=== PATIENT | female | born 1990 | race Caucasian/White ===

== ENCOUNTER 2019-11-14 16:59 | Emergency (ER) | payer SELFPAY ==
--- NOTE | 2019-11-14 17:48 | EDM.PDOC ---
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 Patient had a sono-histogram performed by Dr. Oral Moffett and states that she has had some cramping and bleeding following the procedure and was not sure if this is normal are not. Patient states the cramping is improved from when she had the procedure. Patient states that she has some light bleeding and is using 1-2 tampons a day over the weekend and states the bleeding is less than her usual cycle. Patient denies any other symptoms or concerns. Patient denies fever, chills, chest pain, shortness of breath, or cough. Denies headache, neck stiff ness, change in vision, syncope, or near syncope. Denies nausea, vomiting, diarrhea, constipation, or dysuria. Has not noted any blood in urine or stool. Patient has been eating and drinking appropriately. Review of systems: As per history of present illness and below otherwise all systems reviewed and negative. Past medical history: As per history of present illness and as reviewed below otherwise noncontributory. Surgical history: As per history of present illness and as reviewed below otherwise noncontributory. Social history: See social history for further information Family history: As per history of present illness and as reviewed below otherwise noncontributory. Physical exam: General: Patient is alert, oriented, and in no acute distress. Patient sitting comfortably on exam table. HEENT: Atraumatic, normocephalic, pupils equal and reactive bilaterally, negative for conjunctival pallor or scleral icterus, mucous membranes moist, TMs normal bilaterally, throat clear, neck supple, nontender, trachea midline. No drooling or trismus noted. No meningeal signs. No hot potato voice noted. Lungs: Clear to auscultation, breath sounds equal bilaterally, chest nontender. Heart: S1S2, regular rate and rhythm without overt murmur Abdomen: Soft, nondistended, nontender. Negative for masses or hepatosplenomegaly. Negative for costovertebral tenderness. Pelvis: Stable nontender. Genitourinary: Strategic Buyer at bedside KR. There is a small amount of bright red blood in the vaginal vault. There is a small amount of blood in the cervical os. Negative cervical motion tenderness. Rectal: Deferred. Skin: Intact, warm, dry. No lesions or rashes noted. Extremities: Atraumatic, negative for cords or calf pain. Neurovascular unremarkable. Neuro: Awake, alert, oriented. Cranial nerves II through XII unremarkable. Cerebellum unremarkable. Motor and sensory unremarkable throughout. Exam nonfocal. Notes: Dr. Clark, OBGYN drywall application supervisor for [facility], consulted on patient and thoroughly discussed patients case. She states that it is normal to have some bleeding after the procedure as well as cramping and to have patient follow up in the clinic and call to set up an appointment time tomorrow. Voices understanding and is agreeable to plan of care. Denies any further questions or concerns at this time. Diagnostics: CBC, CMP, UA, Uhcg Therapeutics: None Prescription: None Impression: Abnormal vaginal bleeding Plan: 1. You can alternate ibuprofen and Tylenol as directed for pain and discomfort. 2. Follow-up with [facility] women's health provider as discussed. Return to the ED as needed and as discussed. Definitive disposition and diagnosis as appropriate pending reevaluation and review of above. - Related Data Allergies Allergy/AdvReac Type Severity Reaction Status Date / Time No Known Allergies Allergy Verified 11/14/19 17:21 Home Meds: Home Meds . 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: fibroids surgery 11/12/19 Musculoskeletal History: Reports: None Neurological History: Reports: None Psychiatric History: Reports: None Endocrine/Metabolic History: Reports: None Hematologic History: Reports: None Immunologic History: Reports: None Dermatologic History: Reports: None - Infectious Disease History Infectious Disease History: Reports: None - Past Surgical History Head Surgeries/Procedures: Reports: None Social & Family History - Tobacco Use Smoking Status *Q: Never Smoker Second Hand Smoke Exposure: No - Caffeine Use Caffeine Use: Reports: None - Recreational Drug Use Drug Use in Last 12 Months: Yes Recreational Drug Type: Reports: Marijuana/Hashish Recreational Drug Use Frequency: Weekly ED ROS GENERAL - Review of Systems Review Of Systems: Comprehensive ROS is negative, except as noted in HPI. ED EXAM, GENERAL - Physical Exam Exam: See Below (see dictation) Course - Vital Signs Last Recorded V/S: Last Vital Signs Temp 97.4 F 11/14/19 17:17 Pulse 99 11/14/19 17:17 Resp 18 11/14/19 17:17 BP 144/65 H 11/14/19 17:17 Pulse Ox 98 11/14/19 17:17 - Orders/Labs/Meds Labs: Laboratory Tests 11/14/19 11/14/19 11/14/19 Range/Units 17:55 17:55 18:00 WBC 10.36 (4.0-11.0) K/uL RBC 4.85 (4.30-5.90) M/uL Hgb 13.5 (12.0-16.0) g/dL Hct 40.3 (36.0-46.0) % MCV 83.1 (80.0-98.0) fL MCH 27.8 (27.0-32.0) pg MCHC 33.5 (31.0-37.0) g/dL RDW Std Deviation 40.1 (28.0-62.0) fl RDW Coeff of Adelina 13 (11.0-15.0) % Plt Count 317 (150-400) K/uL MPV 11.70 (7.40-12.00) fL Neut % (Auto) 76.4 (48.0-80.0) % Lymph % (Auto) 15.9 L (16.0-40.0) % [place] % (Auto) 5.4 (0.0-15.0) % Eos % (Auto) 1.8 (0.0-7.0) % Baso % (Auto) 0.5 (0.0-1.5) % Neut # (Auto) 7.9 H (1.4-5.7) K/uL Lymph # (Auto) 1.7 (0.6-2.4) K/uL [place] # (Auto) 0.6 (0.0-0.8) K/uL Eos # (Auto) 0.2 (0.0-0.7) K/uL Baso # (Auto) 0.1 (0.0-0.1) K/uL Nucleated RBC % 0.0 /100WBC Nucleated RBCs # 0 K/uL Sodium 142 (136-145) mmol/L Potassium 4.0 (3.5-5.1) mmol/L Chloride 106 (98-107) mmol/L Carbon Dioxide 25.9 (21.0-32.0) mmol/L BUN 13 (7.0-18.0) mg/dL Creatinine 0.9 (0.6-1.0) mg/dL Est Cr Clr Drug Dosing 81.08 mL/min Estimated GFR (MDRD) > 60.0 ml/min Glucose 84 (74-106) mg/dL Calcium 8.6 (8.5-10.1) mg/dL Total Bilirubin 0.2 (0.2-1.0) mg/dL AST 18 (15-37) IU/L ALT 26 (14-63) IU/L Alkaline Phosphatase 84 (46-116) U/L Total Protein 7.6 (6.4-8.2) g/dL Albumin 3.6 (3.4-5.0) g/dL Globulin 4.0 (2.6-4.0) g/dL Albumin/Globulin Ratio 0.9 (0.9-1.6) Urine Color YELLOW Urine Appearance CLEAR Urine pH 6.5 (5.0-8.0) Ur Specific Laie >= 1.030 (1.001-1.035) Urine Protein NEGATIVE (NEGATIVE) mg/dL Urine Glucose (UA) NEGATIVE (NEGATIVE) mg/dL Urine Ketones NEGATIVE (NEGATIVE) mg/dL Urine Occult Blood NEGATIVE (NEGATIVE) Urine Nitrite NEGATIVE (NEGATIVE) Urine Bilirubin NEGATIVE (NEGATIVE) Urine Urobilinogen 0.2 (<2.0) EU/dL Ur Leukocyte Esterase NEGATIVE (NEGATIVE) Urine HCG, Qual (NEGATIVE) 11/14/19 Range/Units 18:00 WBC (4.0-11.0) K/uL RBC (4.30-5.90) M/uL Hgb (12.0-16.0) g/dL Hct (36.0-46.0) % MCV (80.0-98.0) fL MCH (27.0-32.0) pg MCHC (31.0-37.0) g/dL RDW Std Deviation (28.0-62.0) fl RDW Coeff of Adelina (11.0-15.0) % Plt Count (150-400) K/uL MPV (7.40-12.00) fL Neut % (Auto) (48.0-80.0) % Lymph % (Auto) (16.0-40.0) % [place] % (Auto) (0.0-15.0) % Eos % (Auto) (0.0-7.0) % Baso % (Auto) (0.0-1.5) % Neut # (Auto) (1.4-5.7) K/uL Lymph # (Auto) (0.6-2.4) K/uL [place] # (Auto) (0.0-0.8) K/uL Eos # (Auto) (0.0-0.7) K/uL Baso # (Auto) (0.0-0.1) K/uL Nucleated RBC % /100WBC Nucleated RBCs # K/uL Sodium (136-145) mmol/L Potassium (3.5-5.1) mmol/L Chloride (98-107) mmol/L Carbon Dioxide (21.0-32.0) mmol/L BUN (7.0-18.0) mg/dL Creatinine (0.6-1.0) mg/dL Est Cr Clr Drug Dosing mL/min Estimated GFR (MDRD) ml/min Glucose (74-106) mg/dL Calcium (8.5-10.1) mg/dL Total Bilirubin (0.2-1.0) mg/dL AST (15-37) IU/L ALT (14-63) IU/L Alkaline Phosphatase (46-116) U/L Total Protein (6.4-8.2) g/dL Albumin (3.4-5.0) g/dL Globulin (2.6-4.0) g/dL Albumin/Globulin Ratio (0.9-1.6) Urine Color Urine Appearance Urine pH (5.0-8.0) Ur Specific Laie (1.001-1.035) Urine Protein (NEGATIVE) mg/dL Urine Glucose (UA) (NEGATIVE) mg/dL Urine Ketones (NEGATIVE) mg/dL Urine Occult Blood (NEGATIVE) Urine Nitrite (NEGATIVE) Urine Bilirubin (NEGATIVE) Urine Urobilinogen (<2.0) EU/dL Ur Leukocyte Esterase (NEGATIVE) Urine HCG, Qual NEGATIVE (NEGATIVE) Departure - Departure Time of Disposition: 18:48 Disposition: Home, Self-Care 01 Clinical Impression: Abnormal vaginal bleeding - Discharge Information Referrals: PCP,Unknown [Primary Care Provider] - Forms: ED Department Discharge Additional Instructions: The following information is given to patients seen in the emergency department who are being discharged to home. This information is to outline your options for follow-up care. We provide all patients seen in our emergency department with a follow-up referral. The need for follow-up, as well as the timing and circumstances, are variable depending upon the specifics of your emergency department visit. If you don't have a primary care physician on staff, we will provide you with a referral. We always advise you to contact your personal physician following an emergency department visit to inform them of the circumstance of the visit and for follow-up with them and/or the need for any referrals to a consulting specialist. The emergency department will also refer you to a specialist when appropriate. This referral assures that you have the opportunity for follow-up care with a specialist. All of these measure are taken in an effort to provide you with optimal care, which includes your follow-up. Under all circumstances we always encourage you to contact your private physician who remains a resource for coordinating your care. When calling for follow-up care, please make the office aware that this follow-up is from your recent emergency room visit. If for any reason you are refused follow-up, please contact the [facility] Emergency Department at and asked to speak to the emergency department charge nurse. [facility] [address] [place] [address] [facility] [address] [place] [address] [facility] [address] [place] [id number] 1. You can alternate ibuprofen and Tylenol as directed for pain and discomfort. 2. Follow-up with [facility] provider as discussed. Return to the ED as needed and as discussed. Sepsis Event Note - Evaluation Sepsis Screening Result: No Definite Risk - Focused Exam Vital Signs: Vital Signs Temp Pulse Resp BP Pulse Ox 11/14/19 17:17 97.4 F 99 18 144/65 H 98 Date Exam was Performed: 11/14/19 Time Exam was Performed: 18:47
[2019-11-14 18:32] LABS: BLOOD UREA NITROGEN,BUN 13 mg/dL (7.0-18.0); CARBON DIOXIDE,CO2 25.9 mmol/L (21.0-32.0); CHLORIDE,CL 106 mmol/L (98-107); GLUCOSE RANDOM 84 mg/dL (74-106); SODIUM,NA 142 mmol/L (136-145)
== END 2019-11-14 18:59 | disposition home or self-care (01) ==
LOC: MW.ED 16:59
DX: N93.9 Abnormal uterine and vaginal bleeding, unspecified (principal)
CPT/HCPCS: 36415; 80053; 81003; 81025; 85025; 99284

== ENCOUNTER 2020-08-01 14:57 | Emergency (ER) | payer BC ==
[2020-08-01] MEDS ORDERED: Octyl 2-Cyanoacrylate 1 APPLIC TUBE TOP ONE (15:13)
--- NOTE | 2020-08-01 15:51 | EDM.PDOC ---
ED HPI GENERAL MEDICAL PROBLEM - General Chief Complaint: Laceration Stated Complaint: LACERATION ABOVE LEFT EYE Time Seen by Provider: 08/01/20 15:00 Source of Information: Reports: Patient History Limitations: Reports: No Limitations - History of Present Illness INITIAL COMMENTS - FREE TEXT/NARRATIVE: Presents reporting that she walked into a shelf lacerating her left eyebrow. No other injury and no LOC. left eyebrow Pain Score (Numeric/FACES): 5 - Related Data Allergies Allergy/AdvReac Type Severity Reaction Status Date / Time No Known Allergies Allergy Verified 08/01/20 15:05 Home Meds: Home Meds . 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: fibroids surgery 11/12/19 Musculoskeletal History: Reports: None Neurological History: Reports: None Psychiatric History: Reports: None Endocrine/Metabolic History: Reports: None Hematologic History: Reports: None Immunologic History: Reports: None Dermatologic History: Reports: None - Infectious Disease History Infectious Disease History: Reports: Chicken Pox - Past Surgical History Head Surgeries/Procedures: Reports: None Social & Family History - Family History Family Medical History: Noncontributory - Tobacco Use Smoking Status *Q: Never Smoker - Caffeine Use Caffeine Use: Reports: Coffee, Energy Drinks, Soda, Tea - Recreational Drug Use Recreational Drug Use: Yes Recreational Drug Type: Reports: Marijuana/Hashish Recreational Drug Use Frequency: Daily ED ROS GENERAL - Review of Systems Review Of Systems: Comprehensive ROS is negative, except as noted in HPI. ED EXAM, SKIN/RASH Exam: See Below Exam Limited By: No Limitations General Appearance: Alert, No Apparent Distress Ears: Normal External Exam Nose: Normal Inspection Throat/Mouth: Normal Inspection Head: Normocephalic, Other (1.5 cm laceration left eyebrow superficial no bleeding) Neck: Normal Inspection Respiratory/Chest: No Respiratory Distress, Lungs Clear, Normal Breath Sounds Cardiovascular: Normal Peripheral Pulses, Regular Rate, Rhythm, No Edema Neurological: Alert, Oriented Psychiatric: Normal Affect, Normal Mood ED SKIN PROCEDURES - Laceration/Wound Repair Left Brow Appearance: Superficial Closed with: Dermabond Lac/Wound length In cm: 1.5 Course - Vital Signs Last Recorded V/S: Last Vital Signs Temp 35.8 C L 08/01/20 15:05 Pulse 81 08/01/20 15:05 Resp 17 08/01/20 15:05 BP 145/75 H 08/01/20 15:05 Pulse Ox 95 08/01/20 15:05 - Orders/Labs/Meds Meds: Medications Discontinued Medications Generic Name Dose Route Start Last Admin Trade Name Sorin PRN Reason Stop Dose Admin Octyl Cyanoacrylate 1 applic 08/01/20 15:13 08/01/20 15:20 Dermabond Mini TOP 08/01/20 15:14 1 applic ONETIME ONE Administration Departure - Departure Time of Disposition: 15:48 Disposition: Home, Self-Care 01 Condition: Good Clinical Impression: Laceration - Discharge Information Referrals: PCP,None [Primary Care Provider] - Additional Instructions: The following information is given to patients seen in the emergency department who are being discharged to home. This information is to outline your options for follow-up care. We provide all patients seen in our emergency department with a follow-up referral. The need for follow-up, as well as the timing and circumstances, are variable depending upon the specifics of your emergency department visit. If you don't have a primary care physician on staff, we will provide you with a referral. We always advise you to contact your personal physician following an emergency department visit to inform them of the circumstance of the visit and for follow-up with them and/or the need for any referrals to a consulting specialist. The emergency department will also refer you to a specialist when appropriate. This referral assures that you have the opportunity for follow-up care with a specialist. All of these measure are taken in an effort to provide you with optimal care, which includes your follow-up. Under all circumstances we always encourage you to contact your private physician who remains a resource for coordinating your care. When calling for follow-up care, please make the office aware that this follow-up is from your recent emergency room visit. If for any reason you are refused follow-up, please contact the [facility] Emergency Department at and asked to speak to the emergency department charge nurse. 1. Watch for signs of infection: Redness, swelling, purulent drainage report promptly 2. Dermabond will fall off on its own Sepsis Event Note (ED) - Evaluation Sepsis Screening Result: No Definite Risk - Focused Exam Vital Signs: Vital Signs Temp Pulse Resp BP Pulse Ox 08/01/20 15:05 35.8 C L 81 17 145/75 H 95
== END 2020-08-01 16:01 | disposition home or self-care (01) ==
LOC: MW.ED 14:57
DX: S01.112A Laceration without foreign body of left eyelid and periocular area, initial encounter (principal); W22.01XA Walked into wall, initial encounter
CPT/HCPCS: 12011; 99282; A9270

== ENCOUNTER 2021-01-23 06:32 | Day surgery (SDC) | payer BC ==
[2021-01-23] MEDS ORDERED: fentaNYL 100 MCG/2 ML SDV ONE (07:07)
[2021-01-23] MEDS ORDERED: Propofol 200 MG/20 ML SDV ONE (07:07)
[2021-01-23] MEDS ORDERED: Midazolam 1 MG/ML 2 ML SDV ONE (07:07)
[2021-01-23] MEDS ORDERED: Ketorolac 30 MG/ML SDV ONE (07:11)
[2021-01-23] MEDS ORDERED: Ondansetron 4 MG/2 ML SDV ONE (07:11)
[2021-01-23] MEDS ORDERED: Glycopyrrolate 0.2 MG/ML SDV ONE (07:11)
[2021-01-23] MEDS ORDERED: Lidocaine 2% 5 ML SDV ONE (07:11)
--- NOTE | 2021-01-23 07:22 | PCM.PREANE ---
Preanesthetic Assessment - Anesthesia/Transfusion/Family Hx Anesthesia History: No Prior Anesthesia Family History of Anesthesia Reaction: No Transfusion History: No Prior Transfusion(s) - Review of Systems General: No Symptoms Pulmonary: No Symptoms Cardiovascular: No Symptoms Gastrointestinal: No Symptoms Neurological: No Symptoms Other: Reports: None - Physical Assessment NPO Status Date: 01/22/21 Vital Signs: Last Vital Signs Temp 97.5 F 01/23/21 06:48 Pulse 80 01/23/21 06:48 Resp 16 01/23/21 06:48 BP 126/66 01/23/21 06:48 Pulse Ox 95 01/23/21 06:48 Height: 5 ft 5 in Weight: 97.069 kg ASA Class: 1 Mental Status: Alert & Oriented x3 Airway Class: Mallampati = 2 Dentition: Reports: Normal Dentition ROM/Head Extension: Full Lungs: Clear to Auscultation Cardiovascular: Regular Rate, Regular Rhythm - Allergies Allergies/Adverse Reactions: Allergies Allergy/AdvReac Type Severity Reaction Status Date / Time dog dander Allergy itch/sneezi Verified 01/23/21 06:56 ng - Blood Blood Available: No - Anesthesia Plan Pre-Op Medication Ordered: None - Acknowledgements Anesthesia Type Planned: General Anesthesia Pt an Appropriate Candidate for the Planned Anesthesia: Yes Alternatives and Risks of Anesthesia Discussed w Pt/Guardian: Yes Pt/Guardian Understands and Agrees with Anesthesia Plan: Yes PreAnesthesia Questionnaire - Past Health History Medical/Surgical History: Denies Medical/Surgical History HEENT History: Reports: None Cardiovascular History: Reports: None Respiratory History: Reports: None Gastrointestinal History: Reports: None Genitourinary History: Reports: None 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: Dysfunctional Uterine Bleeding, Fibroids Musculoskeletal History: Reports: None Neurological History: Reports: None Psychiatric History: Reports: None Endocrine/Metabolic History: Reports: Obesity/BMI 30+ Hematologic History: Reports: None Immunologic History: Reports: None Oncologic (Cancer) History: Reports: None Dermatologic History: Reports: None - Infectious Disease History Infectious Disease History: Reports: Chicken Pox - Past Surgical History Head Surgeries/Procedures: Reports: None - SUBSTANCE USE Tobacco Use Within Last Twelve Months: Other (See Below) Recreational Drug Type: Reports: Marijuana/Hashish - HOME MEDS Home Medications: Home Meds Acetaminophen [Tylenol Extra Strength] 2 tab PO ASDIRECTED PRN 01/17/21 [History] Cetirizine [ZyrTEC] 1 tab PO DAILY PRN 01/17/21 [History] Ibuprofen [Advil] 1 tab PO ASDIRECTED PRN 01/17/21 [History] Pnv No.95/Ferrous Fum/Folic AC [ Vitamin Tablet] 1 tab PO DAILY 01/17/21 [History] - CURRENT (IN HOUSE) MEDS Current Meds: Current Medications Discontinued Medications Fentanyl (Sublimaze) Confirm Administered Dose 100 mcg .ROUTE .STK-MED ONE Stop: 01/23/21 07:08 Glycopyrrolate (Robinul) Confirm Administered Dose 0.2 mg .ROUTE .STK-MED ONE Stop: 01/23/21 07:12 Ketorolac Tromethamine (Toradol) Confirm Administered Dose 30 mg .ROUTE .STK-MED ONE Stop: 01/23/21 07:12 Lidocaine (Xylocaine-Mpf 2%) Confirm Administered Dose 5 ml .ROUTE .STK-MED ONE Stop: 01/23/21 07:12 Midazolam HCl (Versed 1 Mg/Ml) Confirm Administered Dose 2 mg .ROUTE .STK-MED ONE Stop: 01/23/21 07:08 Ondansetron HCl (Zofran) Confirm Administered Dose 4 mg .ROUTE .STK-MED ONE Stop: 01/23/21 07:12 Propofol (Diprivan 20 Ml) Confirm Administered Dose 200 mg .ROUTE .STK-MED ONE Stop: 01/23/21 07:08
[2021-01-23 07:28] LABS: BLOOD UREA NITROGEN,BUN 14 mg/dL (7.0-18.0); CARBON DIOXIDE,CO2 26.8 mmol/L (21.0-32.0); CHLORIDE,CL 103 mmol/L (98-107); GLUCOSE RANDOM 102 mg/dL (74-106); POTASSIUM,K 4.1 mmol/L (3.5-5.1); SODIUM,NA 138 mmol/L (136-145)
[2021-01-23] MEDS ORDERED: fentaNYL 100 MCG/2 ML SDV IVPUSH PRN (08:19)
[2021-01-23] MEDS ORDERED: Acetaminophen 1,000 MG in Premix Bag 1 BAG IV PRN (08:19)
--- NOTE | 2021-01-23 09:05 | PCM.POSTAN ---
POST ANESTHESIA ASSESSMENT - MENTAL STATUS Mental Status: Alert, Oriented - VITAL SIGNS Vital Signs: Last Vital Signs Temp 97.2 F 01/23/21 08:38 Pulse 60 01/23/21 09:03 Resp 16 01/23/21 09:03 BP 124/62 01/23/21 09:03 Pulse Ox 95 01/23/21 09:03 - RESPIRATORY Respiratory Status: Respiratory Rate WNL, Airway Patent, O2 Saturation Stable - CARDIOVASCULAR CV Status: Pulse Rate WNL, Blood Pressure Stable - GASTROINTESTINAL GI Status: No Symptoms - PAIN Pain Score: 2 - POST OP HYDRATION Hydration Status: Adequate & Stable
--- NOTE | 2021-01-23 09:33 | PCM.OPNOTE ---
- General Post-Op/Procedure Note Date of Surgery/Procedure: 01/23/21 Operative Procedure(s): Operative hysteroscopy removal of endometrial lesion Findings: 8 week sized anteverted uterus Endometrial cavity with 3 distinct endometrial projection (appears like endometrial polyp) Fluid deficit -400ml Pre Op Diagnosis: Abnormal uterine bleeding - Endometrial polyp Post-Op Diagnosis: same Primary Surgeon: Cecil Keller Anesthesia Provider: Cecil Randall Pathology: Endometrial lesion Fluid Replacement, Intraop: 700 EBL in mLs: 10 Complications: None Condition: Good Free Text/Narrative:: Intake & Output 01/22/21 01/23/21 01/23/21 22:59 06:59 14:59 Intake Total 850 Balance 850
--- NOTE | 2021-01-23 10:11 | PCM48HPAN ---
Post Anesthesia Note - EVALUATION WITHIN 48HRS OF ANESTHETIC Vital Signs in Normal Range: Yes Patient Participated in Evaluation: Yes Respiratory Function Stable: Yes Airway Patent: Yes Cardiovascular Function Stable: Yes Hydration Status Stable: Yes Pain Control Satisfactory: Yes Nausea and Vomiting Control Satisfactory: Yes Mental Status Recovered: Yes Vital Signs: Last Vital Signs Temp 97.7 F 01/23/21 09:10 Pulse 63 01/23/21 09:40 Resp 16 01/23/21 09:40 BP 129/63 01/23/21 09:40 Pulse Ox 95 01/23/21 09:40
--- NOTE | 2021-01-26 08:27 | OR ---
SURGEON: CHANTELLE KELLER DATE OF PROCEDURE: 01/23/2021 PRIMARY SURGEON: Dr. Chantelle Keller. PREOPERATIVE DIAGNOSIS: A 30-year-old, para 0, with abnormal uterine bleeding secondary to an endometrial polyp. POSTOPERATIVE DIAGNOSIS: A 30-year-old, para 0, with abnormal uterine bleeding secondary to an endometrial polyp. PROCEDURE: Operative hysteroscopy, removal of endometrial lesion. ESTIMATED BLOOD LOSS: 10. FLUID DEFICIT: 600. IV FLUID: 700. ANESTHESIA: General. COMPLICATION: None. NOTES AND FINDINGS: An 8-week size anteverted uterus. Uterine cavity with three projections into the endometrial cavity, two from the anterior wall and one from the posterior wall. It appears like a polyp. Bilateral ostia were visualized. BRIEF HISTORY ABOUT THE PATIENT: She is a 30-year-old, who was initially seen for infertility workup. She has had an ultrasound done, which showed some thickness of the endometrium. Saline ultrasound was done and showed an endometrial polyp; however, the patient reported normal menses. The patient then was returned back to the clinic a couple of months after complaining of heavy menstrual bleeding. At this point, it was recommended she has a hysteroscopic removal of the endometrial lesion. She was explained the risks, benefits, and alternatives, and she decided to proceed. DESCRIPTION OF PROCEDURE: The patient was taken to the operating room where she was prepared and draped in the dorsal lithotomy position with Oziel stirrups. The speculum was placed to expose the cervix. The anterior lip of the cervix was grasped with Allis clamp. The cervix was dilated to accommodate the MyoSure hysteroscope. Upon visualization of the lesion, the MyoSure device was then placed into the hysteroscope and the lesion was removed without any difficulty under direct visualization. The hysteroscope was then removed from the endometrium and the endometrial cavity after all lesions were removed without any difficulty. The uterus was then visualized and there was no lesion noted within the endometrial cavity after which the entire device, hysteroscope was removed. A curved curette was then placed into the uterus and gentle curetting was done along all four alvarez of the uterus. The tissue was sent to pathology. The Allis clamp was removed and speculum was removed. The patient tolerated the procedure well. All instrument and pad counts were correct x2. APPLE / JOSÉ /[id number]
== END 2021-01-23 09:59 | disposition home or self-care (01) ==
LOC: MW.SDS 06:32
PROVIDERS: ATTEND Obstetrics & Gynecology
DX: N84.0 Polyp of corpus uteri (principal); N87.0 Mild cervical dysplasia; N97.9 Female infertility, unspecified; D25.9 Leiomyoma of uterus, unspecified; E66.9 Obesity, unspecified; Z79.899 Other long term (current) drug therapy
CPT/HCPCS: 36415; 58558; 80048; 84703; 88305; J0131; J1885; J2250; J2405; J2704; J3490; 00952; J3010

== ENCOUNTER 2021-12-20 08:49 | Emergency (ER) | payer BC ==
[2021-12-20 09:39] LABS: BLOOD UREA NITROGEN,BUN 7 mg/dL (7.0-18.0); CARBON DIOXIDE,CO2 26.3 mmol/L (21.0-32.0); CHLORIDE,CL 103 mmol/L (98-107); GLUCOSE RANDOM 113 mg/dL (74-106); POTASSIUM,K 3.5 mmol/L (3.5-5.1); SODIUM,NA 138 mmol/L (136-145)
[2021-12-20 09:51] LABS: CORONAVIRUS COVID-19 NAA POSITIVE (NEGATIVE); INFLUENZA A NAA NEGATIVE (NEGATIVE); INFLUENZA B NAA NEGATIVE (NEGATIVE)
[2021-12-20] MEDS ORDERED: methylPREDNISolone Sodium Succinate 125 MG/2 ML SDV IVPUSH ONE (10:06)
[2021-12-20] MEDS ORDERED: Acetaminophen 325 MG Tab PO ONE (10:06)
[2021-12-20] MEDS ORDERED: diphenhydrAMINE 50 MG/ML SDV IVPUSH ONE (10:06)
[2021-12-20] MEDS ORDERED: Sodium Chloride 0.9% 1,000 ML IV ONE (10:06)
[2021-12-20] MEDS ORDERED: Ketorolac 30 MG/ML SDV IVPUSH ONE (10:07)
== END 2021-12-20 11:52 | disposition home or self-care (01) ==
LOC: MW.ED 08:49
DX: U07.1 COVID-19 (principal); R21 Rash and other nonspecific skin eruption; E66.9 Obesity, unspecified; Z68.34 Body mass index [BMI] 34.0-34.9, adult; Z91.048 Other nonmedicinal substance allergy status; Z79.899 Other long term (current) drug therapy
CPT/HCPCS: 0240U; 36415; 80053; 85025; 87070; 87880; 96374; 96375; 99283; A9270; J1200; J1885; J2930; J7030

== ENCOUNTER → 2025-10-11 | Emergency (ER) | payer BC ==
[2025-10-11] MEDS: Fluorescein 1 MG Ophth Strip EYEBOTH ONE (22:08)
[2025-10-11] MEDS: Ciprofloxacin 0.3% Ophth Soln 2.5 ML Bottle EYEBOTH ONE (22:42)
== END | disposition home or self-care (01) ==
LOC: MW.ED 21:26
DX: H57.89 Other specified disorders of eye and adnexa (principal); E66.9 Obesity, unspecified; Z79.899 Other long term (current) drug therapy; Z88.0 Allergy status to penicillin; Z91.048 Other nonmedicinal substance allergy status; Z68.27 Body mass index [BMI] 27.0-27.9, adult
CPT/HCPCS: 99283